=== PATIENT | female | born 1975 | race Caucasian/White ===

== ENCOUNTER → 2016-10-12 | Outpatient (CLI) | payer BC, MEDICAID ==
[2016-10-12 16:42] LABS: BUN 10 mg/dL (7-18)
[2016-10-12 16:43] LABS: GFR (ESTIMATED) 111 ML/MIN (59-)
[2016-10-14 18:36] LABS: Antinuclear Antibodies, IFA Negative (.)
== END ==
LOC: LAB 14:47
PROVIDERS: Internal Medicine Adolescent Medicine
DX: L65.9 Nonscarring hair loss, unspecified (principal); E11.9 Type 2 diabetes mellitus without complications

== ENCOUNTER → 2016-10-19 | Outpatient (CLI) | payer BC, MEDICAID ==
--- NOTE | 2016-10-22 07:57 | RADIOLOGY REPORT PS360 ---
DIG MAMM-SCREEN BOBBY W/CAD CAD Screening COMPARISON: None, this is baseline INDICATION: There is no personal or family history of breast cancer TECHNIQUE: Standard CC and MLO images were obtained. R2 CAD reviewed. FINDINGS: Mild to moderate scattered fibroglandular densities are seen throughout both breasts. There is a possible asymmetric density inner quadrant right breast approximately 3:00 position. There is a mole marker right breast. There are no suspicious microcalcifications. IMPRESSION: Fibrofatty parenchyma with possible asymmetric density right breast and recommend the patient return for spot compression MLO and CC views and ultrasound if this proves to be a true lesion BI-RADS CATEGORY: 0_Incomplete: Need additional imaging RECOMMENDED FOLLOWUP: ADD ADDITIONAL IMAGING (A letter has been sent to the patient regarding results of the study.)
== END ==
LOC: RAD 08:30
DX: Z12.31 Encounter for screening mammogram for malignant neoplasm of breast (principal)
CPT/HCPCS: G0202

== ENCOUNTER → 2016-11-01 | Outpatient (CLI) | payer BC, MEDICAID ==
--- NOTE | 2016-11-03 11:06 | RADIOLOGY REPORT PS360 ---
DIG MAMM-DX UNI RT W/AV W/CAD, US BREAST-RT COMPLETE W/AXILLA COMPARISON: 10/19/2016 INDICATION: Follow-up abnormal mammogram ORDERING PHYSICIAN: EMILIANO SPENCER PATIENT AGE: 41 years TECHNIQUE: Standard spot compression views and right breast ultrasound FINDINGS: There is average fibroglandular tissue. Previously noted area of asymmetric density in medial aspect of the right breast is less apparent on the spot compression view. On the spot views there is an area of asymmetric density deep are within the right breast not readily apparent on the regular mammogram image and not seen on the MLO view or straight ML view probably related to asymmetric fibroglandular tissue. No sonographic abnormalities are evident in this region as well. Right breast ultrasound: General survey is performed of the right breast. No cystic or solid lesions evident. IMPRESSION: No convincing evidence of malignancy. Asymmetric densities are present in the medial aspect of the right breast probably related to fibroglandular tissue. BI-RADS CATEGORY: 3_Probably Benign-Short Term F/U RECOMMENDED FOLLOWUP: Repeat right mammogram in 4-6 months. Also recommend correlation with physical exam. (A letter has been sent to the patient regarding results of the study.)
== END ==
LOC: RAD 09:00
DX: R92.8 Other abnormal and inconclusive findings on diagnostic imaging of breast (principal)
CPT/HCPCS: G0206-RT